=== PATIENT | female | born 1985 | race African-American/Black ===

== ENCOUNTER 2023-03-05 11:32 | Outpatient (CLI) | payer OTHER | END 2023-03-05 11:33 | disposition home or self-care (01) | LOC: SCSMRI 11:32 | DX: S66.911A Strain of unspecified muscle, fascia and tendon at wrist and hand level, right hand, initial encounter (principal); S46.911A Strain of unspecified muscle, fascia and tendon at shoulder and upper arm level, right arm, initial encounter; S66.211A Strain of extensor muscle, fascia and tendon of right thumb at wrist and hand level, initial encounter ==